=== PATIENT | male | born 2000 | race African-American/Black ===

== ENCOUNTER 2020-12-16 10:16 | Emergency (ER) | payer SELFPAY ==
[~2020-12-16] VITALS: Ht 175.3 cm; Wt 129.5 kg
[2020-12-16] MEDS ORDERED: NITROGLYCERIN SUBLINGUAL 0.4 MG BOTTLE OF 25. SL PRN (11:00)
[2020-12-16] MEDS ORDERED: MORPHINE SULFATE 2 MG/ML VIAL. IV/SQ PRN (11:00)
[2020-12-16] MEDS ORDERED: ASPIRIN 325 MG TABLET PO ONE (11:00)
--- NOTE | 2020-12-16 11:17 | RAD ---
EXAMINATION: XR CHEST 1V CLINICAL HISTORY: Chest pain EXAM DATE/TIME: 12/16/2020 11:07 AM COMPARISON: None FINDINGS: Lines, Tubes, and Devices: None. Cardiomediastinal Silhouette: Within normal limits. Lungs and Pleura: No evidence of focal airspace consolidation, pleural effusion, or pneumothorax. Bones and Soft Tissues: No acute osseous abnormality. IMPRESSION: No evidence of acute cardiopulmonary abnormality. Electronically signed by: Loyd Sun DO (12/16/2020 11:14 AM) [id number]
--- NOTE | 2020-12-16 11:58 | EKG ---
[facility] [address] [place] [address] Test Date: 2020-12-16 Test Time: 11:12:10 Pat Name: ANGELINA ESCOBEDO Department: Room: Gender: Dialer: : 2000 Requested By: CAROL YUAN Order Number: [id number] Reading MD: Measurements Intervals [place] Rate: 77 P: 31 [place]: 126 QRS: 9 QRSD: 88 T: 20 QT: 336 QTc: 382 Interpretive Statements SINUS RHYTHM NORMAL ECG RI6.02 No previous ECG available for comparison
[2020-12-16 12:04] LABS: BARBITURATES NEG (NEG); BENZODIAZEPINES NEG (NEG); CANNABINOIDS POS (NEG); COCAINE NEG (NEG); METHADONE NEG (NEG); OPIATES NEG (NEG); PHENCYCLIDINE NEG (NEG)
[2020-12-16 12:05] LABS: AMPHETAMINE/METHAMPHETAMINE NEG (NEG)
[2020-12-16 12:06] LABS: BASO % 1 % (0-3); EOS # 0.1 x10^3/uL (0.0-0.7); EOS % 1 % (0-3); HEMATOCRIT 43.1 % (39.0-53.0); HEMOGLOBIN 14.4 g/dL (13.0-17.5); LYMPH # 2.3 x10^3/uL (1.0-4.8); LYMPH % 41 % (24-48); MEAN CORPUSCULAR HEMOGLOBIN 27 pg (25-35); MEAN CORPUSCULAR HGB CONC 34 g/dL (31-37); MEAN CORPUSCULAR VOLUME 80 fL (79-100); MONO # 0.4 x10^3/uL (0.0-1.1); MONO % 8 % (0-9); NEUT # 2.9 x10^3/uL (1.8-7.7); NEUT % 50 % (31-73); PLATELET COUNT 312 x10^3/uL (140-400); RED BLOOD COUNT 5.37 x10^6/uL (4.30-5.70); WHITE BLOOD COUNT 5.8 x10^3/uL (4.0-11.0)
[2020-12-16 12:11] LABS: CALCIUM 9.1 mg/dL (8.5-10.1); CREATININE 0.8 mg/dL (0.7-1.3); GFR 146.3; POTASSIUM 4.3 mmol/L (3.5-5.1)
[2020-12-16 12:16] LABS: ALBUMIN 3.6 g/dL (3.4-5.0); ALBUMIN/GLOBULIN RATIO 0.9 (1.0-1.7); MAGNESIUM 1.9 mg/dL (1.8-2.4); TOTAL BILIRUBIN 0.2 mg/dL (0.2-1.0); TOTAL PROTEIN 7.5 g/dL (6.4-8.2)
[2020-12-16] MEDS ORDERED: NICO1PAT21 TP (15:14)
--- NOTE | 2020-12-16 15:14 | PHYS DOC ---
Past Medical History Past Medical History: No Pertinent History Past Surgical History: Other Additional Past Surgical Histo: tumor removal from back Smoking Status: Never Smoker Alcohol Use: None General Adult EDM: Chief Complaint: HYPERTENSION HPI: HPI: Patient is a 20 year old male with no significant medical history presents today complaining of high blood pressure and chest pain. Patient states he started a new job recently, his blood pressure was taken he can not remember when but it was 150/90. He states they requested him to get checked out. 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 Denies any shortness of breath. Denies anything specifically relieving the pain. States he does not have any pain right now. Review of Systems: Review of Systems: Constitutional: Denies fever or chills. [] Eyes: Denies change in visual acuity. [] HENT: Denies nasal congestion or sore throat. [] Respiratory: Denies cough or shortness of breath. [] Cardiovascular: Reports chest pain and high blood pressure GI: Denies abdominal pain, nausea, vomiting, bloody stools or diarrhea. [] : Denies dysuria. [] Musculoskeletal: Denies back pain or joint pain. [] Integument: Denies rash. [] Neurologic: Denies headache, focal weakness or sensory changes. [] Psychiatric: Denies depression or anxiety. [] Heart Score: C/O Chest Pain: Yes HEART Score for Chest Pain: HEART Score for Chest Pain Response (Comments) Value History Slighlty/Non-Suspicious 0 ECG Normal 0 Age < 45 0 Risk Factors No Risk Factors 0 Troponin < Normal Limit 0 Total 0 Risk Factors: Risk Factors: DM, Current or recent (<one month) smoker, HTN, HLP, family history of CAD, obesity. Risk Scores: Score 0 - 3: 2.5% MACE over next 6 weeks - Discharge Home Score 4 - 6: 20.3% MACE over next 6 weeks - Admit for Clinical Observation Score 7 - 10: 72.7% MACE over next 6 weeks - Early Invasive Strategies Current Medications: Current Medications Medications (Trade) Dose Ordered Sig/Prieto Start Time Stop Time Status Last Admin Dose Admin Aspirin (Sameer Aspirin) 325 mg 1X ONCE 12/16/20 11:00 12/16/20 11:01 DC Morphine Sulfate (Morphine Sulfate) 2 mg PRN Q15MIN PRN 12/16/20 11:00 12/17/20 10:59 Nitroglycerin (Nitrostat) 0.4 mg PRN Q5MIN PRN 12/16/20 11:00 12/17/20 10:59 Allergies: Allergies: Allergies Coded Allergies Type Severity Reaction Last Updated Verified No Known Drug Allergies 12/16/20 No Physical Exam: PE: Constitutional: Obese patient, no acute distress, non-toxic appearance. [] HENT: Normocephalic, atraumatic, bilateral external ears normal, oropharynx moist, no oral exudates, nose normal. [] Eyes: PERRLA, EOMI, conjunctiva normal, no discharge. [] Neck: Normal range of motion, no tenderness, supple, no stridor. [] Cardiovascular:Heart rate regular rhythm, no murmur [] Lungs & Thorax: Bilateral breath sounds clear to auscultation [] Abdomen: Bowel sounds normal, soft, no tenderness, no masses, no pulsatile masses. [] Skin: Warm, dry, no erythema, no rash. [] Back: No tenderness, no CVA tenderness. [] Extremities: No tenderness, no cyanosis, no clubbing, ROM intact, no edema. [] Neurologic: Alert and oriented X 3, normal motor function, normal sensory function, no focal deficits noted. [] Psychologic: Affect normal, judgement normal, mood normal. [] Current Patient Data: Labs: Laboratory Tests Test 12/16/20 10:55 12/16/20 11:45 12/16/20 13:46 D-Dimer (Sayra) < 0.27 ug/mlFEU Sodium Level 138 mmol/L (136-145) Potassium Level 4.3 mmol/L (3.5-5.1) Chloride Level 102 mmol/L (98-107) Carbon Dioxide Level 26 mmol/L (21-32) Anion Gap 10 (6-14) Blood Urea Nitrogen 12 mg/dL (8-26) Creatinine 0.8 mg/dL (0.7-1.3) Estimated GFR (Cockcroft-Gault) 146.3 BUN/Creatinine Ratio 15 (6-20) Glucose Level 89 mg/dL (70-99) Calcium Level 9.1 mg/dL (8.5-10.1) Magnesium Level 1.9 mg/dL (1.8-2.4) Total Bilirubin 0.2 mg/dL (0.2-1.0) Aspartate Amino Transferase (AST) 16 U/L (15-37) Alanine Aminotransferase (ALT) 12 U/L (16-63) L Alkaline Phosphatase 73 U/L (46-116) Troponin I Quantitative < 0.017 ng/mL (0.000-0.055) < 0.017 ng/mL (0.000-0.055) ZK-Aun-S-Type Natriuretic Peptide < 5 pg/mL (0-124) Total Protein 7.5 g/dL (6.4-8.2) Albumin 3.6 g/dL (3.4-5.0) Albumin/Globulin Ratio 0.9 (1.0-1.7) L Thyroid Stimulating Hormone (TSH) 0.566 uIU/mL (0.358-3.74) Urine Opiates Screen Neg (NEG) Urine Methadone Screen Neg (NEG) Urine Barbiturates Neg (NEG) Urine Phencyclidine Screen Neg (NEG) Urine Amphetamine/Methamphetamine Neg (NEG) Urine Benzodiazepines Screen Neg (NEG) Urine Cocaine Screen Neg (NEG) Urine Cannabinoids Screen Pos (NEG) Urine Ethyl Alcohol Neg (NEG) White Blood Count 5.8 x10^3/uL (4.0-11.0) Red Blood Count 5.37 x10^6/uL (4.30-5.70) Hemoglobin 14.4 g/dL (13.0-17.5) Hematocrit 43.1 % (39.0-53.0) Mean Corpuscular Volume 80 fL (79-100) Mean Corpuscular Hemoglobin 27 pg (25-35) Mean Corpuscular Hemoglobin Concent 34 g/dL (31-37) Red Cell Distribution Width 15.0 % (11.5-14.5) H Platelet Count 312 x10^3/uL (140-400) Neutrophils (%) (Auto) 50 % (31-73) Lymphocytes (%) (Auto) 41 % (24-48) Monocytes (%) (Auto) 8 % (0-9) Eosinophils (%) (Auto) 1 % (0-3) Basophils (%) (Auto) 1 % (0-3) Neutrophils # (Auto) 2.9 x10^3/uL (1.8-7.7) Lymphocytes # (Auto) 2.3 x10^3/uL (1.0-4.8) Monocytes # (Auto) 0.4 x10^3/uL (0.0-1.1) Eosinophils # (Auto) 0.1 x10^3/uL (0.0-0.7) Basophils # (Auto) 0.0 x10^3/uL (0.0-0.2) Laboratory Tests 12/16/20 11:45 Laboratory Tests 12/16/20 10:55 Vital Signs: Vital Signs Date Time Temp Pulse Resp B/P (MAP) Pulse Ox O2 Delivery O2 Flow Rate FiO2 12/16/20 10:25 97.8 86 18 133/83 (100) 95 Room Air 97.8 EKG: EK interpreted by Dr. France sinus rhythm with nonspecific ST elevation on lead I, aVL with no reciprocal changes, heart rate 77, no STEMI. Repeat EKG [address] France sinus rhythm with nonspecific ST elevation on lead I, aVL with no reciprocal changes, heart rate 73, no STEMI. Radiology/Procedures: Radiology/Procedures: []PROCEDURE: PORTABLE CHEST 1V EXAMINATION: XR CHEST 1V CLINICAL HISTORY: Chest pain EXAM DATE/TIME: 12/16/2020 11:07 AM COMPARISON: None FINDINGS: Lines, Tubes, and Devices: None. Cardiomediastinal Silhouette: Within normal limits. Lungs and Pleura: No evidence of focal airspace consolidation, pleural effusion, or pneumothorax. Bones and Soft Tissues: No acute osseous abnormality. IMPRESSION: No evidence of acute cardiopulmonary abnormality. Electronically signed by: Loyd Ruffin DO (12/16/2020 11:14 AM) [id number] DICTATED and SIGNED BY: LOYD RUFFIN DO DATE: 12/16/20 [id number] 0 Course & Med Decision Making: Course & Med Decision Making Pertinent Labs and Imaging studies reviewed. (See chart for details) This is a 21-year-old male patient presented to the ED today complaining of chest pain for 3 to 4 months and elevated blood pressure that was noted at work when he started a new job recently. EKG with nonspecific ST elevation no reciprocal changes. Troponin is normal. Chest x-ray is negative, D-dimer is normal, CBC CMP with no acute findings. Blood pressure in the ED is in the 130s over 80s. Discussed with patient importance of lifestyle changes as patient is exercising, losing weight, talked about smoking cessation and nicotine patch sent home with patient. Spent 5 minutes discussing methods of stopping smoking. Wilmer Disclaimer: Wilmer Disclaimer: This electronic medical record was generated, in whole or in part, using a voice recognition dictation system. Departure Departure Impression: Primary Impression: Chest pain Qualified Codes: R07.9 - Chest pain, unspecified Additional Impressions: Smoking addiction High blood pressure Qualified Codes: I10 - Essential (primary) hypertension Disposition: DC HOME SELF CARE/HOMELESS Condition: STABLE Referrals: NO PCP (PCP) follow up with your doctor in 1-2 weeks Patient Instructions: Chest Pain (Nonspecific), DASH Diet, Smoking Cessation Additional Instructions: You were evaluated in the emergency room, your blood pressure is not that bad it is in the 130s over 80s. Consider losing weight, consider diet and exercise avoiding spicy food, fatty foods. Consider exercising. Consider smoking cessation. We will sent you home with nicotine patches. Please use them. Please follow-up with the primary care doctor Scripts Nicotine (NICODERM CQ 21mg) 1 Each Patch.td24 1 PATCH TP DAILY, #28 PATCH 1 Refill Prov: CAROL YUAN APRN 12/16/20 CAROL YUAN APRN Dec 16, 2020 15:14
[2020-12-16 15:34] VITALS: BP 137/73
== END 2020-12-16 15:35 | disposition home or self-care (01) ==
LOC: ER 10:16
DX: I10 Essential (primary) hypertension (principal); R07.89 Other chest pain; Z98.890 Other specified postprocedural states
CPT/HCPCS: 36415; 71045; 80053; 80307; 83735; 83880; 84443; 84484; 85025; 85379; 93005; 99285

== ENCOUNTER 2021-07-20 21:30 | Emergency (ER) | payer BC ==
[~2021-07-20] VITALS: Ht 175.3 cm; Wt 117.3 kg
[~2021-07-20 21:30] MED LIST: NICO1PAT21 TP
[2021-07-20 21:51] VITALS: BP 142/87
--- NOTE | 2021-07-20 22:21 | PHYS DOC ---
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 Denies any alcohol or drug use. Is not on any blood thinners. Did not pass out. No associated headache, neck pain, nausea, vomiting, confusion or abnormal behavior. No h/o prior head injury. Is acting appropriately. Unsure if his tetanus is up-to-date. Review of Systems: Review of Systems: Constitutional: Denies fever or chills. [] Eyes: Denies change in visual acuity. [] HENT: Denies nasal congestion or sore throat. [] Respiratory: Denies cough or shortness of breath. [] Cardiovascular: Denies chest pain or edema. [] GI: Denies nausea or vomiting : Denies dysuria or hematuria Musculoskeletal: Denies back pain or joint pain. [] Integument: Denies rash or diaphoresis Neurologic: Denies headache, neck pain, focal weakness or sensory changes. [] Endocrine: Denies polyuria or polydipsia. [] Lymphatic: Denies swollen glands. [] Psychiatric: Denies depression or anxiety. [] Heart Score: C/O Chest Pain: No Risk Factors: Risk Factors: DM, Current or recent (<one month) smoker, HTN, HLP, family history of CAD, obesity. Risk Scores: Score 0 - 3: 2.5% MACE over next 6 weeks - Discharge Home Score 4 - 6: 20.3% MACE over next 6 weeks - Admit for Clinical Observation Score 7 - 10: 72.7% MACE over next 6 weeks - Early Invasive Strategies Allergies: Allergies: Allergies Coded Allergies Type Severity Reaction Last Updated Verified No Known Drug Allergies 12/16/20 No Physical Exam: PE: Constitutional: Well developed, well nourished, no acute distress, non-toxic appearance. HENT: Right-sided hematoma over patient's glabella, abrasion to the left side of patient's skull-with scab intact no active bleeding, no septal hematoma, no hemotympanum Eyes: PERRLA, EOMI, conjunctiva normal, no discharge, no raccoon eyes Neck: Normal range of motion, supple, the patient presented to the emergency department with a c-collar in place, Nexus C-spine criteria are negative: There is no post midline tenderness, the patient is not intoxicated, there is a normal level of alertness, there are no focal neurologic deficits and there are no d istracting injuries Cardiovascular: S1/2 present, regular rhythm Lungs & Thorax: Speaking in full sentences, bilateral equal chest rise, no tachypnea or increased work of breathing Skin: Warm, dry, no erythema, no rash. [] Back: No tenderness, no CVA tenderness. [] Extremities: No tenderness, no cyanosis, Neurologic: Alert and oriented X 3, normal motor function, normal sensory function, no focal deficits noted. [] Psychologic: Affect normal, judgement normal, mood normal. [] EKG: EKG: [] Radiology/Procedures: Radiology/Procedures: [] Course & Med Decision Making: Course & Med Decision Making Pertinent Labs and Imaging studies reviewed. (See chart for details) Concern for blunt head injury and neurologically intact patient. Nexus criteria negative. Patient has a forehead hematoma and abrasion to his left parietal skull. Will update tetanus. Patient neurologically intact and low risk for traumatic pathology including intracranial hemorrhage or unstable cervical fracture. Will discharge home with strict ED return precautions were given for severe headache, neck pain, nausea and vomiting, confusion, lethargy or neurologic deficits. Encouraged urgent outpatient follow-up with PMD re- evaluation. Life-threatening processes were considered but are low suspicion at this time, given history, physical exam and ED workup. Pt was educated on all prescription medications and adverse effects. All patient's questions were answered and pt was stable at time of discharge. Life/limb-threatening differential includes but is not limited to, intracranial hemorrhage, diffuse axonal injury, spinal cord syndrome, unstable cervical fracture or SCIWORA, fractures or joint dislocations, neurovascular injuries, organ injury or laceration, pneumothorax, pneumoperitoneum, pericardial tamponade, unstable pelvic fracture, compartment syndrome, flail chest or respiratory distress, burn injury or asphyxiation, I have spoken with the patient and/or caregivers. I explained the patient's condition, diagnoses and treatment plan based on the information available to me at this time. I have answered the patient and/or caregiver's questions and addressed any concerns. The patient and/or caregivers have a good understanding of patient's diagnosis, condition and treatment plan as can be expected at this point. Vital signs have been stable. Patient's condition is stable and appropriate for discharge from the emergency department. Patient will pursue further outpatient evaluation with primary care physician or other designated or consulting physician as outlined in the discharge instructions. The patient and/or caregivers are agreeable to this plan of care and follow-up instructions have been explained in detail. The patient and/or caregivers have received these instructions in written form and have expressed an understanding of the discharge instructions. The patient and/or caregivers are aware that any significant change of condition or worsening of symptoms should prompt immediate return to this or the closest emergency department or call to 911. Wilmer Disclaimer: Wilmer Disclaimer: This electronic medical record was generated, in whole or in part, using a voice recognition dictation system. Departure Departure Impression: Primary Impression: Traumatic hematoma of forehead Additional Impressions: Need for Tdap vaccination Blunt head injury Disposition: HOME / SELF CARE / HOMELESS Condition: STABLE Referrals: NO PCP (PCP) Follow-up with your primary care physician in 24 to 48 hours for re-evaluation OR FOLLOW UP WITH FAMILY MEDICINE: [address] [facility], [facility] [address] [place] [address] Patient Instructions: Head Injury, Adult, Hematoma, VIS, Tetanus, Diphtheria (Td); Tetanus, Diphtheria, Pertussis (Tdap) - [facility] Additional Instructions: EMERGENCY DEPARTMENT GENERAL DISCHARGE INSTRUCTIONS Thank you for coming to [facility] Emergency Department (ED) today and trusting us with you care. We trust that you had a positive experience in our Emergency Department. If you wish to speak to the department management, you may call the Director at [phone]. YOUR FOLLOW UP INSTRUCTIONS ARE FOLLOWS: 1. Do you have a private Doctor? If you do not have a private doctor, please ask for a resource list of physicians or clinics that may be able to assist you with follow up care. 2. The Emergency Physicain has interpreted your x-rays. The X-Ray specialist will also review them. If there is a change in the findings, you will be notified in 48 hours when at all possible. 3. A lab test or culture has been done, your results will be reviewed and you will be notified if you need a change in treatment. ADDITIONAL INSTRUCTIONS AND INFORMATION: 1. Your care today has been supervised by a physician who is specially trained in emergency care. Many problems require more than one evaluation for a complete diagnosis and treatment. We recommend that you schedule your follow up appointment as recommended to ensure complete treatment of you illness or injury. If you are unable to obtain follow up care and continue to have a problem, or if your condition worsens, we recommend that you return to the ED. 2. We are not able to safely determine your condition over the phone nor are we able to give sound medical advice over the phone. For these safety reasons, if you call for medical advice we will ask you to come to the ED for further evaluation. 3. If you have any questions regarding these discharge instructions please call the ED at [phone]. SAFETY INFORMATION: In the interest of safety, wellness, and injury prevention; we encourage you to wear your sealbelt, if you smoke; quite smoking, and we encourage family to use a protective helmet for bicycling and other sporting events that present an increased risk for head injury. IF YOUR SYMPTOMS WORSEN OR NEW SYMPTOMS DEVELOP, OR YOU HAVE CONCERNS ABOUT YOUR CONDITION; OR IF YOUR CONDITION WORSENS WHILE YOU ARE WAITING FOR YOUR FOLLOW UP APPOINTMENT; EITHER CONTACT YOUR PRIMARY CARE DOCTOR, THE PHYSICIAN WHOSE NAME AND NUMBER YOU WERE GIVEN, OR RETURN TO THE ED IMMEDIATELY. [facility] DO Jul 20, 2021 22:21
[2021-07-20] MEDS ORDERED: DIPH,PERTUSS(ACELL),TET VAC/PF 0.5 ML SYRINGE. VAX IM ONE (23:15)
== END 2021-07-20 23:23 | disposition home or self-care (01) ==
LOC: ER 21:30
DX: S00.83XA Contusion of other part of head, initial encounter (principal); W18.09XA Striking against other object with subsequent fall, initial encounter; Y93.89 Activity, other specified; Y92.89 Other specified places as the place of occurrence of the external cause; Y99.8 Other external cause status
CPT/HCPCS: 90471; 90715; 99283-25

== ENCOUNTER 2021-08-24 17:25 | Emergency (ER) | payer SELFPAY ==
[~2021-08-24] VITALS: Ht 172.7 cm; Wt 117.4 kg
[2021-08-24] MEDS ORDERED: IBUPROFEN 400 MG TABLET. PO ONE (18:15)
--- NOTE | 2021-08-24 18:15 | PHYS DOC ---
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 He presents for evaluation of right hemiscrotal/testicular discomfort and swelling with onset 4 days ago and persisting since then. Testicle is quite swollen and there is moderate discomfort to palpation of the entire testicle. No associated fevers, nausea or vomiting, upper respiratory congestion/rhinorrhea, cough, sore throat, shortness of breath or chest pain of any kind, abdominal pain of any kind, flank pain, midline back pain, dysuria, hematuria, polyuria or oliguria, penile discharge, rashes or lesions to the groin, perineal swelling or pain, changes in bowel habits Patient is alert and pleasantly and appropriately interactive and in no acute distress with appropriate vital signs upon initial evaluation here in the emergency department. Review of Systems Review of Systems A 12 point review of systems was completed and was negative except where noted in HPI above. Current Medications Current Medications Current Medications Medications (Trade) Dose Ordered Sig/Prieto Start Time Stop Time Status Last Admin Dose Admin Ceftriaxone Sodium (Rocephin Im) 500 mg 1X ONCE 08/24/21 20:30 08/24/21 20:31 DC 08/24/21 20:36 500 MG Doxycycline Hyclate (Vibra-Tab) 100 mg 1X ONCE 08/24/21 20:30 08/24/21 20:31 DC 08/24/21 20:39 100 MG Ibuprofen (Motrin) 400 mg 1X ONCE 08/24/21 18:15 08/24/21 18:16 DC 08/24/21 18:15 400 MG Levofloxacin/ Dextrose 150 ml @ 100 mls/hr 1X ONCE 08/24/21 20:30 08/24/21 21:59 08/24/21 20:39 100 MLS/HR Allergies Allergies Allergies Coded Allergies Type Severity Reaction Last Updated Verified No Known Drug Allergies 12/16/20 No Physical Exam Physical Exam Young male appearing nontoxic and in no acute distress. Head is normocephalic and atraumatic. Neck is supple and nontender. Oropharynx is moist. Lungs are clear to auscultation at all stations. There is normal S1 and S2 without rubs or gallops and capillary refill is appropriate, less than 2 seconds globally. Abdomen is soft, nontender and nondistended. Skin is warm and dry without cyanosis, clubbing or edema. Psychiatrically, the patient demonstrates appropriate mood and affect and is alert. Evaluation of the groin reveals moderate tenderness and swelling without obvious erythema noted to the right hemiscrotum only. No erythema, warmth, swelling or tenderness noted to the inguinal region, perineum, rectum. No inguinal lymphadenopathy. No rashes or lesions to the groin. Cremasteric reflex is intact on both sides. Current Patient Data Vital Signs Vital Signs Date Time Temp Pulse Resp B/P (MAP) Pulse Ox O2 Delivery O2 Flow Rate FiO2 08/24/21 20:39 92 20 158/122 (134) 100 Room Air 08/24/21 17:39 98.6 98.6 Lab Values Laboratory Tests Test 08/24/21 17:30 08/24/21 20:20 Urine Collection Type Unknown Urine Color Barb Urine Clarity Clear Urine pH 6.0 (<5.0-8.0) Urine Specific [place] >=1.030 (1.000-1.030) Urine Protein Negative mg/dL (NEG-TRACE) Urine Glucose (UA) Negative mg/dL (NEG) Urine Ketones (Stick) Negative mg/dL (NEG) Urine Blood Trace (NEG) Urine Nitrite Negative (NEG) Urine Bilirubin Negative (NEG) Urine Urobilinogen Dipstick 1.0 mg/dL (0.2 mg/dL) Urine Leukocyte Esterase Negative (NEG) Urine RBC 3-5 /HPF (0-2) Urine WBC 1-4 /HPF (0-4) Urine Squamous Epithelial Cells Few /LPF Urine Bacteria Few /HPF (0-FEW) Urine Mucus Mod /LPF White Blood Count 9.8 x10^3/uL (4.0-11.0) Red Blood Count 4.87 x10^6/uL (4.30-5.70) Hemoglobin 13.1 g/dL (13.0-17.5) Hematocrit 39.3 % (39.0-53.0) Mean Corpuscular Volume 81 fL (79-100) Mean Corpuscular Hemoglobin 27 pg (25-35) Mean Corpuscular Hemoglobin Concent 33 g/dL (31-37) Red Cell Distribution Width 15.0 % (11.5-14.5) H Platelet Count 335 x10^3/uL (140-400) Neutrophils (%) (Auto) 57 % (31-73) Lymphocytes (%) (Auto) 32 % (24-48) Monocytes (%) (Auto) 9 % (0-9) Eosinophils (%) (Auto) 1 % (0-3) Basophils (%) (Auto) 1 % (0-3) Neutrophils # (Auto) 5.6 x10^3/uL (1.8-7.7) Lymphocytes # (Auto) 3.2 x10^3/uL (1.0-4.8) Monocytes # (Auto) 0.8 x10^3/uL (0.0-1.1) Eosinophils # (Auto) 0.1 x10^3/uL (0.0-0.7) Basophils # (Auto) 0.1 x10^3/uL (0.0-0.2) Sodium Level 140 mmol/L (136-145) Potassium Level 3.4 mmol/L (3.5-5.1) L Chloride Level 101 mmol/L (98-107) Carbon Dioxide Level 29 mmol/L (21-32) Anion Gap 10 (6-14) Blood Urea Nitrogen 13 mg/dL (8-26) Creatinine 0.9 mg/dL (0.7-1.3) Estimated GFR (Cockcroft-Gault) 126.5 BUN/Creatinine Ratio 14 (6-20) Glucose Level 83 mg/dL (70-99) Calcium Level 9.0 mg/dL (8.5-10.1) Total Bilirubin 0.5 mg/dL (0.2-1.0) Aspartate Amino Transferase (AST) 20 U/L (15-37) Alanine Aminotransferase (ALT) 29 U/L (16-63) Alkaline Phosphatase 68 U/L (46-116) C-Reactive Protein, Quantitative 28.9 mg/L (0-3.3) H Total Protein 7.6 g/dL (6.4-8.2) Albumin 3.5 g/dL (3.4-5.0) Albumin/Globulin Ratio 0.9 (1.0-1.7) L Laboratory Tests 08/24/21 20:20 Laboratory Tests 08/24/21 20:20 EKG EKG [] Radiology/Procedures Radiology/Procedures [] Testicular ultrasound dated 08/24/2021. CLINICAL HISTORY: Reason: right testicle pain, swelling / Spl. Instructions: / History: COMPARISON: None available. TECHNIQUE: Ultrasound images of the scrotum was performed with darling-scale and color doppler. FINDINGS: Right testicle measures 3.5 x 2.6 x 2.4 cm. Left testicle measures 4.6 x 2.4 x 2.4 cm. There is a small simple appearing cyst at the left testicle. The right testicle is somewhat heterogeneous without definite mass. There are venous waveforms within the right testicle however no arterial waveform could be obtained. There is normal color flow and waveforms to the left testicle. Right epididymis is also heterogeneous. The left epididymis is unremarkable. Tiny bilateral hydroceles. No definite varicocele. IMPRESSION: 1. Heterogeneous appearance of the right testicle with no detectable arterial waveform. Etiology is indeterminate but testicular torsion is not excluded. Other possibilities would include orchitis or less likely neoplasm. Follow-up imaging recommended. 2. There is also mild heterogeneous appearance of the right epididymis which could be related to ischemia or infection. 3. Small bilateral hydroceles. Results discussed with ER physician at approximately 7:50 PM on the day of study. Electronically signed by: Cezar Martini MD (08/24/2021 7:54 PM) [facility] [place] DICTATED and SIGNED BY: CEZAR MARTINI MD DATE: 08/24/21 [id number] 0 Course & Med Decision Making Course & Med Decision Making Well-appearing 21-year-old gentleman presenting with isolated right testicular discomfort and swelling for the last 4 days. No associated dysuria or penile discharge. Will give ibuprofen for discomfort, check urine, urine urine culture and urine gonorrhea/chlamydia and obtain a scrotal and testicular ultrasound. We will then reevaluate. 2004: Contacted by the radiologist to advised that there is no arterial blood flow to the patient's right testicle. He states appearance is somewhat atypical for torsion but torsion is not excluded. Differential per the radiologist includes severe epididymoorchitis. Labs drawn and will administer Rocephin, doxycycline and levofloxacin and will transfer the patient for emergent urology attention. 2024: Accepted in transfer to by emergency physician Dr. Ahuja. Case discussed directly and in detail with Dr. Varghese of urology at that facility who plans OR when patient arrives to [place]. Departing at this time. CC TIME 37 MINUTES. Dragon Disclaimer Dragon Disclaimer This electronic medical record was generated, in whole or in part, using a voice recognition dictation system. Departure Departure Impression: Primary Impression: Testicular torsion Disposition: 02 [facility]ORT [facility] Referrals: NO PCP (PCP) JL FONTANEZ MD Aug 24, 2021 18:15
[2021-08-24 18:27] LABS: BILIRUBIN,URINE NEGATIVE (NEG); CLARITY,URINE CLEAR; COLOR,URINE AMBER; NITRITE,URINE NEGATIVE (NEG); PROTEIN,URINE NEGATIVE (NEG-TRACE)
[2021-08-24 18:55] LABS: BACTERIA,URINE FEW /HPF (0-FEW)
--- NOTE | 2021-08-24 19:56 | RAD ---
Testicular ultrasound dated 08/24/2021. CLINICAL HISTORY: Reason: right testicle pain, swelling / Spl. Instructions: / History: COMPARISON: None available. TECHNIQUE: Ultrasound images of the scrotum was performed with darling-scale and color doppler. FINDINGS: Right testicle measures 3.5 x 2.6 x 2.4 cm. Left testicle measures 4.6 x 2.4 x 2.4 cm. There is a sma ll simple appearing cyst at the left testicle. The right testicle is somewhat heterogeneous without d efinite mass. There are venous waveforms within the right testicle however no arterial waveform could be obtained. There is normal color flow and waveforms to the left testicle. Right epididymis is also heterogeneous. The left epididymis is unremarkable. Tiny bilateral hydrocele s. No definite varicocele. IMPRESSION: 1. Heterogeneous appearance of the right testicle with no detectable arterial waveform. Etiology is i ndeterminate but testicular torsion is not excluded. Other possibilities would include orchitis or le ss likely neoplasm. Follow-up imaging recommended. 2. There is also mild heterogeneous appearance of the right epididymis which could be related to isch emia or infection. 3. Small bilateral hydroceles. Results discussed with ER physician at approximately 7:50 PM on the day of study. Electronically signed by: Cezar Martini MD (08/24/2021 7:54 PM) [facility]
[2021-08-24] MEDS ORDERED: DOXYCYCLINE HYCLATE 100 MG TABLET PO ONE (20:30)
[2021-08-24] MEDS ORDERED: cefTRIAXone IM 500 MG VIAL. IM ONE (20:30)
[2021-08-24 20:34] LABS: BASO # 0.1 x10^3/uL (0.0-0.2); BASO % 1 % (0-3); EOS # 0.1 x10^3/uL (0.0-0.7); EOS % 1 % (0-3); HEMATOCRIT 39.3 % (39.0-53.0); HEMOGLOBIN 13.1 g/dL (13.0-17.5); LYMPH # 3.2 x10^3/uL (1.0-4.8); LYMPH % 32 % (24-48); MEAN CORPUSCULAR HEMOGLOBIN 27 pg (25-35); MEAN CORPUSCULAR HGB CONC 33 g/dL (31-37); MEAN CORPUSCULAR VOLUME 81 fL (79-100); MONO # 0.8 x10^3/uL (0.0-1.1); MONO % 9 % (0-9); NEUT # 5.6 x10^3/uL (1.8-7.7); NEUT % 57 % (31-73); PLATELET COUNT 335 x10^3/uL (140-400); RED BLOOD COUNT 4.87 x10^6/uL (4.30-5.70); WHITE BLOOD COUNT 9.8 x10^3/uL (4.0-11.0)
[2021-08-24 20:38] LABS: CREATININE 0.9 mg/dL (0.7-1.3); GFR 126.5; POTASSIUM 3.4 mmol/L (3.5-5.1)
[2021-08-24 20:44] LABS: ALBUMIN 3.5 g/dL (3.4-5.0); ALBUMIN/GLOBULIN RATIO 0.9 (1.0-1.7); C-REACTIVE PROTEIN 28.9 mg/L (0-3.3); TOTAL BILIRUBIN 0.5 mg/dL (0.2-1.0); TOTAL PROTEIN 7.6 g/dL (6.4-8.2)
[2021-08-24 21:28] VITALS: BP 152/75
== END 2021-08-24 21:30 | disposition short-term general hospital (02) ==
LOC: ER 17:25
DX: N44.00 Torsion of testis, unspecified (principal)
CPT/HCPCS: 36415; 76870; 80053; 81001; 85025; 85651; 86140; 87040; 87491; 87591; 96365; 96372; 99291; J0696; J1956